=== PATIENT | female | born 1945 | race Caucasian/White ===

== ENCOUNTER 2017-08-13 05:38 | Observation (INO) | payer BC, OTHER ==
[2017-08-08 10:03] VITALS: BMI 29.0
--- NOTE | 2017-08-08 10:37 | PAT Medication Instructions ---
Service Date Aug 08, 2017. Current Home Medication List Aspirin (Aspirin Ec), 81 MG PO QAM Atenolol (Tenormin), 12.5 MG PO QAM Beclomethasone Dip (Qvar), 2 SPRAYS INH QAM Cholecalciferol (Vitamin D3), 1 CAP PO QPM Citalopram Hydrobromide (Citalopram Hydrobromide), 1 TAB PO QAM Ezetimibe (Zetia), 10 MG PO QPM Ibuprofen (Advil), 400 MG PO Q8H PRN for RN Levothyroxine Sodium (Levothyroxine Sodium), 1 TAB PO QAM Mometasone Furoate-Formoterol (Dulera 200/5 Mcg), 2 PUFFS INH QAM Montelukast Sodium (Montelukast Sodium), 1 TAB PO QAM Omeprazole (Prilosec), 40 MG PO QAM Rosuvastatin Calcium (Crestor), 40 MG PO QPM [Tramadol], 1 TAB PO 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 Instructions For Your Scheduled Surgery - Check with surgeon and inspector set up and lay out for instructions: Aspirin (Aspirin Ec), 81 MG PO QAM - Check with surgeon for instructions: Ibuprofen (Advil), 400 MG PO Q8H PRN for RN - Hold the following medications the morning of surgery: Montelukast Sodium (Montelukast Sodium), 1 TAB PO QAM - Take the following medications the morning of surgery with a sip of water: [Tramadol], 1 TAB PO Q8H PRN for RN (okay to take up to 4 hours prior to surgery if needed) Omeprazole (Prilosec), 40 MG PO QAM Mometasone Furoate-Formoterol (Dulera 200/5 Mcg), 2 PUFFS INH QAM Levothyroxine Sodium (Levothyroxine Sodium), 1 TAB PO QAM Citalopram Hydrobromide (Citalopram Hydrobromide), 1 TAB PO QAM Atenolol (Tenormin), 12.5 MG PO QAM Beclomethasone Dip (Qvar), 2 SPRAYS INH QAM - Take the following medications as scheduled the night before surgery: [Tramadol], 1 TAB PO Q8H PRN for RN (if needed) Rosuvastatin Calcium (Crestor), 40 MG PO QPM Ezetimibe (Zetia), 10 MG PO QPM Cholecalciferol (Vitamin D3), 1 CAP PO QPM If you have any questions please call us at [phone] or [phone] or [phone]
[2017-08-08 11:12] LABS: BASO % 0.3 %; BASO ABS # 0.02 K/uL (0-0.2); COMPLETE YES; EOS % 2.2 %; HEMATOCRIT 40.2 % (37-47); IG% 0.3 %; LYMPH % 26.6 %; MEAN CORPUSCULAR HEMOGLOBIN 32.6 pg (25-34); MEAN CORPUSCULAR HGB CONC 34.3 g/dl (32-36); MEAN PLATELET VOLUME 10.8 fL (7.4-10.4); NEUT % 63.6 %; PLATELET COUNT 251 K/uL (130-400); RED BLOOD COUNT 4.23 M/uL (4.2-5.4); WHITE BLOOD COUNT 7.15 K/uL (4.8-10.8)
[2017-08-08 11:13] LABS: URINE APPEARANCE CLEAR (CLEAR); URINE COLOR DK YELLOW; URINE EPITHELIAL CELL AUTO 20-30 /lpf (0-5); URINE NITRITE POS (NEG); URINE PH 5.5 (4.5-7.5); URINE SPECIFIC GRAVITY 1.034 (1.000-1.030); UROBILINOGEN NEG (NEG)
[2017-08-08 11:21] LABS: BUN/CREATININE RATIO 17.1 (10-20); CALCIUM 9.1 mg/dl (8.5-10.1); CREATININE 0.8 mg/dl (0.60-1.20)
--- NOTE | 2017-08-08 11:22 | DIAGNOSTIC IMAGING REPORT ---
CHEST PREADMISSION(PA/LAT) CLINICAL HISTORY: Preoperative chest COMPARISON STUDY: No previous studies for comparison. FINDINGS: The cardiac and mediastinal contours are normal. There is no evidence of focal pulmonary consolidation. There is no evidence of failure. No pleural effusions are visualized.[ IMPRESSION: No active disease in the chest. Electronically signed by: Herman Mckinney M.D. 08/08/2017 11:21 AM Dictated Date/Time: 08/08/2017 11:18 AM
[2017-08-08 11:25] LABS: MANUAL MICROSCOPIC REQUIRED? NO; REVIEW REQ? NO; URINE BILIRUBIN NEG (NEG)
[2017-08-08 11:25] LABS: PARTIAL THROMBOPLASTIN RATIO 0.9; PROTHROMBIN TIME (PATIENT) 10.3 SECONDS (9.0-12.0)
[2017-08-13] VITALS (10 sets, daily range): BP systolic 118–190; BP diastolic 72–99; PULSE 65–85; TEMP 36.4–36.9; O2SAT 90–98
[~2017-08-13] VITALS: Ht 157.5 cm; Wt 72.7 kg
[~2017-08-13 05:38] MED LIST: ASPI81TA28 PO; ATEN-173 PO; CHOL2000 PO; CITA20TA4 PO; EZET10TA63 PO; IBUP-1050 PO; LEVO100T7 PO; MOME200A INH; MONT1TAB5 PO; PRLSR20 PO; QVRINH80 INH; ROSU40TA PO; TRAMADOL PO
[2017-08-13] MEDS ORDERED: CEFAZOLIN 1000MG/55 ML D5W 55 ML IV SCH (06:00)
[2017-08-13] MEDS ORDERED: CEFAZOLIN 2000 MG/60 ML D5W 60 ML IV SCH (06:00)
[2017-08-13] MEDS ORDERED: LACTATED RINGER'S 1000ML 1,000 ML IV SCH (06:00)
[2017-08-13] MEDS ORDERED: SODIUM CHLORIDE 0.9% 1000ML 1,000 ML IV SCH (06:00)
[2017-08-13] MEDS ORDERED: bactrim (06:08)
[2017-08-13] MEDS ORDERED: NEOSTIGMINE METHYLSULFATE 5 MG/5 ML SYR ONE (06:42)
[2017-08-13] MEDS ORDERED: ONDANSETRON INJ 2 MG/ML 2 ML VIAL ONE (06:42)
[2017-08-13] MEDS ORDERED: MIDAZOLAM HCL 1 MG/ML 2ML VIAL ONE (06:42)
[2017-08-13] MEDS ORDERED: LIDOCAINE HCL 2% 2 ML VIAL (20MG/ML) ONE (06:42)
[2017-08-13] MEDS ORDERED: GLYCOPYRROLATE INJ 0.2 MG/ML VIAL ONE (06:42)
[2017-08-13] MEDS ORDERED: DEXAMETHASONE SOD INJ 4 MG/ML VIAL ONE (06:42)
[2017-08-13] MEDS ORDERED: PROPOFOL IV EMULSION 10 MG/ML 20 ML VIAL IV ONE (06:42)
[2017-08-13] MEDS ORDERED: FENTANYL CITRATE INJ 50 MCG/1 ML 2 ML VIAL ONE ×3 (06:42→08:32)
[2017-08-13] MEDS ORDERED: VANCOMYCIN HCL 1000MG/20ML VIAL ONE (07:04)
[2017-08-13] MEDS ORDERED: THROMBIN FOR SOLN 20000 UNIT KIT ONE (07:04)
[2017-08-13] MEDS ORDERED: GELATIN SPONGE SZ 100 ONE (07:04)
[2017-08-13] MEDS ORDERED: BACITRACIN 50000 UNIT VIAL ONE (07:04)
[2017-08-13] MEDS ORDERED: BUPIVACAINE/EPINEPHRINE 0.5% MPF 1:200,000 30 ML VIAL ONE (07:05)
[2017-08-13] MEDS ORDERED: NURSING VERBAL MED ORDER ONE ×2 (07:10→16:45)
[2017-08-13] MEDS ORDERED: CEFAZOLIN SOD 1000MG/55 ML D5W IV ONE (07:11)
--- NOTE | 2017-08-13 07:29 | History and Physical ---
History & Physical Date Aug 13, 2017. Chief Complaint Back and right lower extremity pain ongoing for 9 months in duration with associated weakness History of Present Illness The patient is a 71 year old female with complaints of Romulo lower extremity pain again for 9 months in duration weakness of the course of time inability to ambulate Past Medical/Surgical History Radical problem list Pretension high cholesterol asthma apnea angioplasty diabetes and bruisability acid reflux and history knee surgeries 2 angioplasty and placement Allergies to Ceclor Allergies Coded Allergies: Adhesives (Verified Allergy, Unknown, RASH WITH BANDAIDS, 08/13/17) Cefaclor (Verified Allergy, Unknown, FACIAL SWELLING, 08/13/17) Latex1 -Allergic Contact Dermititis (Verified Allergy, Unknown, REDNESS CONTACT, 08/13/17) Home Medications Scheduled Aspirin (Aspirin Ec), 81 MG PO QAM Atenolol (Tenormin), 12.5 MG PO QAM Beclomethasone Dip (Qvar), 2 SPRAYS INH QAM Cholecalciferol (Vitamin D3), 1 CAP PO QPM Citalopram Hydrobromide (Citalopram Hydrobromide), 1 TAB PO QAM Ezetimibe (Zetia), 10 MG PO QPM Levothyroxine Sodium (Levothyroxine Sodium), 1 TAB PO QAM Mometasone Furoate-Formoterol (Dulera 200/5 Mcg), 2 PUFFS INH QAM Montelukast Sodium (Montelukast Sodium), 1 TAB PO QAM Omeprazole (Prilosec), 40 MG PO QAM Rosuvastatin Calcium (Crestor), 40 MG PO QPM [bactrim], 1 BID Scheduled PRN Ibuprofen (Advil), 400 MG PO Q8H PRN for RN [Tramadol], 1 TAB PO Q8H PRN for RN Physical Examination Skin: warm/dry Eyes: normal inspection, sclerae normal ENT: normal ENT inspection Head: normocephalic Neck: supple Respiratory/Chest: lungs clear Cardiovascular: regular rate, rhythm, no edema, no murmur Abdomen / GI: normal bowel sounds Back: normal inspection Extremities: normal inspection Neurologic/Psych: + pertinent finding (motor and sensory deficit right-hand side L5-S1 nerve root distribution) Diagnosis Spinal stenosis lumbar spine ASA Classification: ASA Class III Plan of Treatment Plan of treatment Laminectomy and foraminotomy L5-S1
[2017-08-13] MEDS ORDERED: FENTANYL CITRATE INJ 50 MCG/1 ML 2 ML VIAL IV PRN (08:00)
[2017-08-13] MEDS ORDERED: ONDANSETRON INJ 2 MG/ML 2 ML VIAL IV PRN ×2 (08:00→09:00)
[2017-08-13] MEDS ORDERED: EpHEDrine SULFATE INJ 50 MG/ML AMP IV PRN (08:00)
[2017-08-13] MEDS ORDERED: ATROPINE SULFATE 0.1 MG/ML 5ML SYR IV PRN (08:00)
[2017-08-13] MEDS ORDERED: EpHEDrine SULFATE 50MG/5ML SYR ONE (08:10)
[2017-08-13] MEDS ORDERED: ROCURONIUM BROMIDE 10 MG/ML 5 ML VIAL IV ONE (08:45)
--- NOTE | 2017-08-13 08:50 | DIAGNOSTIC IMAGING REPORT ---
SPINE ONE VIEW, ANY LEVEL CLINICAL HISTORY: L5-S1 LAMINECTOMY/FORAMINOTOMY COMPARISON STUDY: Lumbar spine MRI July 21, 2017. Fluoroscopy time: 2.1 seconds. FINDINGS: Single lateral fluoroscopic image demonstrates surgical retractors and instruments directed over the posterior elements at the L5-S1 level. IMPRESSION: Surgical instruments projecting over the posterior elements at the L5-S1 level. Electronically signed by: Carlos Tidwell M.D. 08/13/2017 8:49 AM Dictated Date/Time: 08/13/2017 8:47 AM
--- NOTE | 2017-08-13 08:51 | [facility] Post Operative Brief Note ---
Immediate Operative Summary Operative Date Aug 13, 2017. Pre-Operative Diagnosis Spinal Stenosis Post-Operative Diagnosis Spinal Stenosis Procedure(s) Performed L5-S1 Laminectomy/ Foraminotomy Surgeon Dr. Peña Foundry Supervisor Surgeon(s) Yony Pimentel PA-C Estimated Blood Loss 30ml Findings severe stenosis Specimens none per surgeon Complication(s) None Disposition Recovery Room / PACU
[2017-08-13] MEDS ORDERED: LORAZEPAM 1 MG TAB PO PRN (09:00)
[2017-08-13] MEDS ORDERED: HYDROmorphone INJ 2 MG/ML SYR/VIAL IV PRN (09:00)
[2017-08-13] MEDS ORDERED: ACETAMINOPHEN 325 MG TAB PO PRN (09:00)
[2017-08-13] MEDS ORDERED: PROMETHAZINE HCL INJ 12.5 MG in SODIUM CHLORIDE 0.9% 50ML 50 ML IV PRN (09:00)
[2017-08-13] MEDS ORDERED: HYDROmorphone INJ 1 MG/ML SYR IV PRN (09:00)
[2017-08-13] MEDS ORDERED: LORAZEPAM INJ 1 MG in SYRINGE 0.5 ML IV PRN (09:00)
[2017-08-13] MEDS ORDERED: OXYCODONE/ACETAMINOPHEN 5-325 TAB PO PRN (09:00)
[2017-08-13] MEDS ORDERED: METOCLOPRAMIDE HCL INJ 5 MG/ML 2 ML VIAL IV PRN (09:00)
[2017-08-13] MEDS ORDERED: MAGNESIUM HYDROXIDE SUSP 30 ML UDC PO PRN (09:00)
[2017-08-13] MEDS ORDERED: LABETALOL HCL IV 5 MG/ML 20ML IV ONE (09:13)
--- NOTE | 2017-08-13 09:16 | OPERATIVE REPORT ---
DATE OF OPERATION: 08/13/2017 PREOPERATIVE DIAGNOSIS: Spinal stenosis L5-S1. POSTOPERATIVE DIAGNOSIS: Same. PROCEDURE: Include a laminectomy, S1, and foraminotomy L5-S1. SURGEON: FIXED ASSETS ACCOUNTANT: Yony Pimentel PA-C. COMPLICATIONS: Zero. BLOOD LOSS: Less than 50. ANESTHETIC: General. DESCRIPTION OF PROCEDURE: The patient was taken to the operating room, a general intubated anesthetic provided to the patient, placed prone. I scrubbed, prepped and draped sterile. We made a skin incision from L4 to the sacrum dissecting the soft tissue. We dissected down off the lamina out to the facet joints, putting in a deep self-retaining retractor. We careful did a laminectomy favoring the right hand side which is her symptomatic side. We decompressed the nerve root which had been L5 and S1 on the right hand side. There was a large synovial cyst which I believe was the culprit and the major generator of pain. She also had a disc protrusion as well which was a contributor in addition to general spinal stenosis. The nerves were free at the close of our dissection. We irrigated, closed in layers. Sterile dressing applied. The patient returned to PACU stable in improved stable condition and vancomycin powder was used in the wound. Sponge and needle count correct. No complications. I attest to the content of the Intraoperative Record and any orders documented therein. Any exception s are noted below.
--- NOTE | 2017-08-13 10:04 | Anesthesiology Progress Note ---
Anesthesia Post Op Note Date & Time Aug 13, 2017 at 10:04 Vital Signs Pain Intensity: 2 Vital Signs Past 12 Hours Date Time Temp Pulse Resp B/P (MAP) Pulse Ox O2 Delivery O2 Flow Rate FiO2 08/13/17 09:45 36.6 77 16 128/72 94 Nasal Cannula 4 08/13/17 09:35 76 16 134/82 97 Nasal Cannula 4 08/13/17 09:25 79 16 135/110 98 Oxymask 15 08/13/17 09:15 83 16 135/98 92 Oxymask 15 08/13/17 09:05 36.7 82 16 162/104 94 Oxymask 15 08/13/17 06:15 36.7 65 18 190/88 (122) 95 Room Air Notes Mental Status: alert / awake / arousable, participated in evaluation Pt Amnestic to Procedure: Yes Nausea / Vomiting: adequately controlled Pain: adequately controlled Airway Patency, RR, SpO2: stable & adequate BP & HR: stable & adequate Hydration State: stable & adequate Anesthetic Complications: no major complications apparent
[2017-08-13] MEDS ORDERED: IV FLUIDS COMPLETED PRN (10:30)
[2017-08-13] MEDS: SODIUM CHLORIDE 0.9% 1000ML 1,000 ML IV SCH ×2 (11:37→20:55)
[2017-08-13] MEDS ORDERED: CEFAZOLIN IV 2,000 MG/60 ML D5W IV SCH (14:00)
[2017-08-13] MEDS: ASPIRIN 81 MG ECTAB PO SCH (14:12)
[2017-08-13] MEDS: MONTELUKAST SOD 10 MG TAB PO SCH (14:13)
[2017-08-13] MEDS: DEXAMETHASONE INJ 10 MG in SYRINGE 0 ML IV SCH ×2 (16:09→23:47)
[2017-08-13] MEDS: CEFAZOLIN SOD 2000 MG in DEXTROSE 5% 50ML IV SCH ×2 (16:16→23:47)
[2017-08-13] MEDS: OXYCODONE/ACETAMINOPHEN 5-325 TAB PO PRN (16:27)
[2017-08-13] MEDS: MACROBID 100 MG PO SCH (20:54)
[2017-08-13] MEDS ORDERED: EZETIMIBE 10MG TAB PO SCH (21:00)
[2017-08-13] MEDS ORDERED: CHOLECALCIFEROL 1000 INTER.UNIT TAB PO SCH (21:00)
[2017-08-14] MEDS: OXYCODONE/ACETAMINOPHEN 5-325 TAB PO PRN (03:08)
[2017-08-14 03:33] VITALS: BP 135/75; PULSE 91; TEMP 37; O2SAT 92
[2017-08-14] MEDS ORDERED: NURSING VERBAL MED ORDER ONE (05:00)
[2017-08-14] MEDS ORDERED: BISACODYL 10 MG SUPP PR PRN (06:00)
[2017-08-14] MEDS ORDERED: LEVOTHYROXINE 100 MCG TAB PO SCH (06:00)
[2017-08-14] MEDS ORDERED: BISACODYL 5 MG TABEC PO PRN (06:00)
[2017-08-14 07:06] VITALS: BP 121/69; PULSE 90; TEMP 36.6; O2SAT 92
--- NOTE | 2017-08-14 07:51 | Discharge Instructions ---
Discharge Instructions Date of Service Aug 14, 2017. Admission Reason for Admission: Spinal Stenosis Discharge Discharge Diagnosis / Problem: same Discharge Goals Goal(s): Improve function Activity Recommendations Activity Limitations: as noted below Lifting Limitations: until after follow-up appointment Exercise/Sports Limitations: until after follow-up appointment May Resume Sexual Activity: after follow-up appointment Shower/Bathe: keep incision dry home ,rest, recover . Instructions / Follow-Up Instructions / Follow-Up MEDICATIONS: Please take your prescriptions as instructed at your pre-op appointment. SPECIAL CARE: The following information is intended to answer some of the common questions and concerns regarding your surgery. Each patient is an individual and receives individual counselling throughout the course of treatment, from diagnosis to surgery all the way through recovery. What follows is not an exhaustive list, but should be a useful guide to some of the common questions and concerns patients have regarding their surgeries. These are not provided to keep you from calling us; rather, they give you something accurate and concrete to reference as you recover from your procedure. If you need us, we are available to you. As always, if you are not sure about something, call us at [phone]. MEDICAL EMERGENCIES: For these conditions, call 911 or go to your local hospital-based Emergency Department - not [facility] or equivalent. * Paralysis * Severe chest pain or difficulty breathing * Swelling or redness of either leg Spine procedures can be rather complex and though complications are rare, they do occur. In such cases, effective advice regarding emergency situations cannot always be addressed over the telephone. You may be referred to the emergency department for more effective management of your problem. Activity Limitations: It is important to give your body time to heal, so please limit your activities : * In general, don't do anything that moves your spine too much. You should avoid contact sports, twisting or heavy lifting while you recover. * 5-10 pounds is all you should attempt to lift. * You should not plan on driving for approximately 3 weeks and you should avoid traveling more than 30-45 minutes at a time. Longer trips should be broken down with walking breaks spaced appropriately. * Physical therapy is not usually required. * Walking and good posture practices will help you recover and regain your function. * Avoid straining or sudden changes in position. * In general, the goal is to take it easy and recover. Don't cause any new problems. Just relax. Showers: * Do not take a bath, use a Jacuzzi or hot tub or otherwise submerge your incision. * It is usually safe to take a shower 4-5 days after your surgery. * Your incision does not require any special creams or ointments. * Simply clean it with soap and water, dry and re-dress with a clean bandage afterwards. Incision: * Keep incision clean, dry and protected until your first follow-up appointment. * Some amount of drainage and redness is normal. Any drainage should be fairly clear and not have a foul odor. * If you feel anything is wrong or you have excessive drainage, please call us. * Your stitches and julio will be removed 10-14 days after your surgery. At the time of your first post-op visit. * Neck surgeries are typically closed with a suture underneath the skin. The steri-strips over the incision should be maintained until we see you in the office. Bracing: * You may be provided with a back or neck brace to encourage good posture and prevent injury. It will remind you not to do too much as you heal and will alert others to the fact that you have had a surgery. * Back braces may be removed for showers and when you are resting at home. They must be worn when you are walking around for any period of time or for travel. * For neck surgery, you will likely be provided with two cervical collars. The soft collar ([place]ham or foam rubber) is worn most commonly throughout the day and while sleeping. The plastic collar (provided at the hospital) is for showering/bathing. * Except while eating, collars should remain in place. More specifically, bracing is provided for a purpose and should be worn. * Please obtain your brace or collars prior to your operation and bring them to the hospital with you on the day of surgery. * You should also bring your collars to your post-op appointment with Dr. Peña. You should always take good care of your body and practice healthy habits, especially following surgery. You should: * Follow your doctor's treatment plan * Sit and stand properly with good posture (ears over shoulders, shoulders over hips) Don't slouch * Learn to lift correctly * Exercise regularly (low-impact aerobic exercise is especially good, but check with your doctor first) * Generally, be up and walking for 5-10 minutes at a time at least 3-4 times per day from the day you get home * Increasing walking to tolerance until you can walk for 20-30 minutes at a time * Attain and maintain a healthy body weight * Eat healthy foods ( a well-balanced, low-fat diet rich in fruits and vegetables) and get enough calcium * Avoid excessive use of alcohol When to call our office - If you notice any of the following: * Increased pain not relieve by pain medicine * Fevers greater then 100 degrees F, chills or flu symptoms * Increased redness around incision * Drainage from the incision that is not clear * Any foul smelling drainage * Swelling or fluid collection beneath the skin Miscellaneous: * In the hospital, you may be given a walker or cane for support while walking. These are temporary needs and are intended to prevent injuries due to falls. You may discontinue them when you feel strong and steady enough on your feet. * Sleep in a comfortable position. We find that many patients find a lounge chair or recliner with several pillows to be beneficial in the early post-operative period. * The support stockings should be used for 7-10 days and may be discontinued when you are back to walking more and conducting usual household activities. No problem is insignificant. We are here to help you and get you well. Contact us at [phone]. Definitions: Foraminotomy: If part of the disc or a bone spur (osteophyte) is pressing on a nerve as it leaves the vertebra (through an exit called the foramen), a foraminotomy may be done. Otomy means "to make an opening." A foraminotomy is making the opening of the foramen larger, so the nerve can exit without being compressed. Laminotomy: Similar to the foraminotomy, a laminotomy makes a larger opening, this time in your bony plate protecting your spinal canal and spinal cord (the lamina). The lamina may be pressing on your nerve, so the surgeon may make more room for the nerves using a laminotomy. Laminectomy: Sometimes, a laminotomy is not sufficient. The surgeon may need to remove all or part of the lamina. This procedure is called a laminectomy. This can often be done at many levels without any harmful effects. Current Hospital Diet Patient's current hospital diet: Diabetes Type 2 Diet Discharge Diet Recommended Diet: Regular Diet, Diabetes Type 2 Diet Procedures Procedures Performed: L5-S1 Laminectomy/ Foraminotomy Pending Studies Studies pending at discharge: no Medical Emergencies . Who to Call and When: Medical Emergencies: If at any time you feel your situation is an emergency, please call 911 immediately. . Non-Emergent Contact Non-Emergency issues call your: Surgeon . "Provider Documentation" section prepared by Haroldo Peña. . VTE Core Measure Inpt VTE Proph given/why not?: Treatment not indicated
[2017-08-14] MEDS: DEXAMETHASONE INJ 10 MG in SYRINGE 0 ML IV SCH (08:33)
[2017-08-14] MEDS: CEFAZOLIN SOD 2000 MG in DEXTROSE 5% 50ML IV SCH (08:33)
[2017-08-14] MEDS: ASPIRIN 81 MG ECTAB PO SCH (08:34)
[2017-08-14] MEDS: MONTELUKAST SOD 10 MG TAB PO SCH (08:35)
[2017-08-14] MEDS: MACROBID 100 MG PO SCH (08:35)
[2017-08-14] MEDS ORDERED: PANTOprazole SOD 40 MG TAB PO SCH (09:00)
[2017-08-14] MEDS ORDERED: POLYETHYLENE (MIRALAX) 17 GM PACK PO SCH (09:00)
[2017-08-14] MEDS ORDERED: MOMETASONE/FORMOTEROL (DULERA) INH INH SCH (09:00)
[2017-08-14] MEDS ORDERED: CITALOPRAM 20 MG TAB PO SCH (09:00)
--- NOTE | 2017-08-14 09:00 | Anesthesiology Progress Note ---
Anesthesia Post Op Note Date & Time Aug 14, 2017 at 09:00 Vital Signs Pain Intensity: 0.0 Vital Signs Past 12 Hours Date Time Temp Pulse Resp B/P (MAP) Pulse Ox O2 Delivery O2 Flow Rate FiO2 08/14/17 08:06 Room Air 08/14/17 07:06 36.6 90 16 121/69 (86) 92 Room Air 08/14/17 03:33 37.0 91 15 135/75 (95) 92 Room Air 08/13/17 23:50 Room Air 08/13/17 22:54 36.9 85 16 118/72 (87) 92 Room Air Notes Mental Status: alert / awake / arousable, participated in evaluation Pt Amnestic to Procedure: Yes Nausea / Vomiting: adequately controlled Pain: adequately controlled Airway Patency, RR, SpO2: stable & adequate BP & HR: stable & adequate Hydration State: stable & adequate Anesthetic Complications: no major complications apparent
[2017-08-14 10:00] VITALS: Ht 157.5 cm; Wt 72.7 kg
[2017-08-14 10:37] VITALS: BP 121/69; PULSE 90; TEMP 36.6; O2SAT 92
--- NOTE | 2017-08-15 01:04 | DISCHARGE SUMMARY ---
She is improved, stable after surgery yesterday. No chest pain, shortness of breath or confusion. No neurological deficit. Vital signs stable, afebrile. Lab work not indicated. ASSESSMENT: Status post laminectomy of lumbar spine. She will be discharged home this morning. Dressing change, her drain will be pulled. She has instructions and precautions from the office and given here in the hospital. She is to call if any problems arise.
== END 2017-08-14 11:34 | disposition home or self-care (01) ==
LOC: C.ACU 05:38 → C.3E 08:59 → ENRESERV 09:26
PROVIDERS: ADMIT Orthopaedic Surgery Orthopaedic Surgery of the Spine; ATTEND Orthopaedic Surgery Orthopaedic Surgery of the Spine
DX: M48.06 Spinal stenosis, lumbar region (principal); I10 Essential (primary) hypertension; E78.00 Pure hypercholesterolemia, unspecified; J45.909 Unspecified asthma, uncomplicated; E11.9 Type 2 diabetes mellitus without complications; K21.9 Gastro-esophageal reflux disease without esophagitis; Z79.82 Long term (current) use of aspirin

== ENCOUNTER 2017-08-17 07:59 | Emergency (ER) | payer OTHER ==
[~2017-08-17] VITALS: Ht 157.5 cm; Wt 70.9 kg
[~2017-08-17 07:59] MED LIST changes: +bactrim
[2017-08-17 08:02] VITALS: TEMP 36.6; Ht 157.5 cm; Wt 70.9 kg
[2017-08-17] MEDS ORDERED: SODIUM CHLORIDE 0.9% 1000ML 1,000 ML IV STA (08:22)
--- NOTE | 2017-08-17 08:32 | EMERGENCY ROOM VISIT NOTE ---
History First contact with patient: 08:07 Chief Complaint: DIARRHEA Stated Complaint: DEHYDRATION-RECENT BACK SURGERY Nursing Triage Summary: Pt states last night she started sweating and had diarrhea yesterday. Chills. Back surgery on Sunday. tylenol at midnight. Rash on back from tape Tramadol taken this am. History of Present Illness The patient is a 71 year old female who presents to the Emergency Room with complaints of chills, myalgia, sweating. The patient had laminectomy performed by Dr. Peña 2 days ago. She has been doing well in regard to her back. Prior to the surgery, she was being treated for urinary tract infection with Macrobid. The patient states that she had been constipated and took a laxative which seemed to work quite well to the point that she had several episodes of diarrhea. The patient states last night that she felt generalized myalgia. She states she had chills and was sweating last night. She reports suprapubic tenderness. She denies fevers. She denies any headache. She denies any chest pain or trouble breathing. She denies any nausea or vomiting. She denies any numbness, tingling, weakness in the extremities. She denies any drainage from the surgical site. She rates her discomfort a 2/10. Review of Systems A 10 system review of systems was completed with positives and pertinent negatives listed in the HPI. Past Medical/Surgical History Medical Problems: (1) Lumbar stenosis Social History Smoking Status: Former Smoker Housing Status: lives with family Current/Historical Medications Scheduled Aspirin (Aspirin Ec), 81 MG PO QAM Atenolol (Tenormin), 12.5 MG PO QAM Beclomethasone Dip (Qvar), 2 SPRAYS INH QAM Cholecalciferol (Vitamin D3), 2,000 UNITS PO QPM Citalopram Hydrobromide (Citalopram Hydrobromide), 20 MG PO QAM Ezetimibe (Zetia), 10 MG PO QPM Levothyroxine Sodium (Levothyroxine Sodium), 100 MCG PO QAM Mometasone Furoate-Formoterol (Dulera 200/5 Mcg), 2 PUFFS INH QAM Montelukast Sodium (Montelukast Sodium), 10 MG PO QAM Nitrofurantoin Monohyd Macro (Macrobid), 1 CAP PO BID Omeprazole (Prilosec), 40 MG PO QAM Rosuvastatin Calcium (Crestor), 40 MG PO QPM Scheduled PRN Ibuprofen (Advil), 400 MG PO Q8H PRN for RN Tramadol (Ultram), 50 MG PO Q8H PRN for Pain Physical Exam Vital Signs Date Time Temp Pulse Resp B/P (MAP) Pulse Ox O2 Delivery O2 Flow Rate FiO2 08/17/17 10:26 76 18 156/90 96 Room Air 08/17/17 09:21 76 18 152/85 95 Room Air 08/17/17 08:02 36.6 82 17 158/113 95 Room Air Physical Exam VITALS: Vitals are noted on the nurse's note and reviewed by myself. Vital signs stable. The patient is afebrile. GENERAL: This is a 71 year old female, in no acute distress, nondiaphoretic, well-developed well-nourished. SKIN: The skin was without erythema, edema, or bruising. There is erythema in the area of the tape. There is no significant erythema, edema, tenderness or drainage at the surgical site. There is no tenting of the skin. Capillary reflex less than 2 seconds. HEAD: Normocephalic atraumatic. EARS: EYES: Pupils equal round and reactive to light and accommodation. Conjunctivae without injection, sclerae without icterus. Extraocular movements intact. NOSE: Patent, turbinates without inflammation or discharge. MOUTH: Mucous membranes moist. Tonsils are not enlarged. Pharynx without erythema or exudate. Uvula midline. Airway patent. Tongue does not deviate. NECK: Supple without nuchal rigidity. No JVD. HEART: Regular rate and rhythm without murmurs gallops or rubs. LUNGS: Clear to auscultation bilaterally without wheezes, rales or rhonchi. No retractions or accessory muscle use. ABDOMEN: Positive bowel sounds x 4. Soft, mild suprapubic tenderness, without masses or organomegaly. Anderson sign negative. MUSCULOSKELETAL: No muscle atrophy, erythema, or edema noted. Full range of motion without joint tenderness in all extremities. No tenderness to palpation. Normal gait. Strength 5/5 throughout. NEURO: Patient was alert and oriented to person place and time. Normal sensation to light and sharp touch. Deep tendon reflexes 2+ throughout. No focal neurological deficits. Medical Decision & Procedures ER Provider Diagnostic Interpretation: CHEST 2 VIEWS ROUTINE CLINICAL HISTORY: Chills. COMPARISON STUDY: Chest radiograph August 08, 2017. FINDINGS: Lung volumes are normal. No pneumothorax or pleural effusion is present. No consolidation is identified to suggest pneumonia. There is no evidence of pulmonary edema. Minimal lower lung opacities favor atelectasis. Cardiomediastinal silhouette is stable. IMPRESSION: 1. No acute cardiopulmonary findings. 2. Mild bibasilar opacities suggestive of atelectasis. Laboratory Results 08/17/17 08:40 Red Blood Count 3.99, Mean Corpuscular Volume 94.0, Mean Corpuscular Hemoglobin 33.1, Mean Corpuscular Hemoglobin Concent 35.2, Mean Platelet Volume 10.8, Neutrophils (%) (Auto) 76.7, Lymphocytes (%) (Auto) 13.2, Monocytes (%) (Auto) 8.7, Eosinophils (%) (Auto) 0.9, Basophils (%) (Auto) 0.2, Neutrophils # (Auto) 8.60, Lymphocytes # (Auto) 1.48, Monocytes # (Auto) 0.98, Eosinophils # (Auto) 0.10, Basophils # (Auto) 0.02 08/17/17 08:40 Test 08/17/17 08:40 08/17/17 08:45 White Blood Count 11.21 K/uL (4.8-10.8) Red Blood Count 3.99 M/uL (4.2-5.4) Hemoglobin 13.2 g/dL (12.0-16.0) Hematocrit 37.5 % (37-47) Mean Corpuscular Volume 94.0 fL (80-100) Mean Corpuscular Hemoglobin 33.1 pg (25-34) Mean Corpuscular Hemoglobin Concent 35.2 g/dl (32-36) Platelet Count 271 K/uL (130-400) Mean Platelet Volume 10.8 fL (7.4-10.4) Neutrophils (%) (Auto) 76.7 % Lymphocytes (%) (Auto) 13.2 % Monocytes (%) (Auto) 8.7 % Eosinophils (%) (Auto) 0.9 % Basophils (%) (Auto) 0.2 % Neutrophils # (Auto) 8.60 K/uL (1.4-6.5) Lymphocytes # (Auto) 1.48 K/uL (1.2-3.4) Monocytes # (Auto) 0.98 K/uL (0.11-0.59) Eosinophils # (Auto) 0.10 K/uL (0-0.5) Basophils # (Auto) 0.02 K/uL (0-0.2) RDW Standard Deviation 45.0 fL (36.4-46.3) RDW Coefficient of Variation 13.0 % (11.5-14.5) Immature Granulocyte % (Auto) 0.3 % Immature Granulocyte # (Auto) 0.03 K/uL (0.00-0.02) Prothrombin Time 10.3 SECONDS (9.0-12.0) Prothromb Time International Ratio 1.0 (0.9-1.1) Activated Partial Thromboplast Time 22.7 SECONDS (21.0-31.0) Partial Thromboplastin Ratio 0.9 Anion Gap 7.0 mmol/L (3-11) Est Creatinine Clear Calc Drug Dose 71.0 ml/min Estimated GFR () 102.9 Estimated GFR (Non- 88.8 BUN/Creatinine Ratio 19.4 (10-20) Calcium Level 9.3 mg/dl (8.5-10.1) Magnesium Level 2.3 mg/dl (1.8-2.4) Total Bilirubin 0.9 mg/dl (0.2-1) Aspartate Amino Transf (AST/SGOT) 22 U/L (15-37) Alanine Aminotransferase (ALT/SGPT) 30 U/L (12-78) Alkaline Phosphatase 75 U/L (45-117) Total Protein 6.9 gm/dl (6.4-8.2) Albumin 3.5 gm/dl (3.4-5.0) Globulin 3.4 gm/dl (2.5-4.0) Albumin/Globulin Ratio 1.0 (0.9-2) Urine Color YELLOW Urine Appearance CLEAR (CLEAR) Urine pH 7.0 (4.5-7.5) Urine Specific [place] 1.009 (1.000-1.030) Urine Protein NEG (NEG) Urine Glucose (UA) NEG (NEG) Urine Ketones NEG (NEG) Urine Occult Blood NEG (NEG) Urine Nitrite NEG (NEG) Urine Bilirubin NEG (NEG) Urine Urobilinogen NEG (NEG) Urine Leukocyte Esterase TRACE (NEG) Urine WBC (Auto) 1-5 /hpf (0-5) Urine RBC (Auto) 0-4 /hpf (0-4) Urine Hyaline Casts (Auto) 1-5 /lpf (0-5) Urine Epithelial Cells (Auto) >30 /lpf (0-5) Urine Bacteria (Auto) NEG (NEG) Medications Administered Medications (Trade) Dose Ordered Sig/Neftali Route Start Time Stop Time Status Last Admin Dose Admin Sodium Chloride 1,000 ml @ 999 mls/hr Q1H1M STAT IV 08/17/17 08:22 08/17/17 09:22 DC 08/17/17 08:44 999 MLS/HR ED Course The patient was seen and examined. Previous visits were reviewed. The patient does not have a fever. She does have a minimal leukocytosis of 11.21. She does not have any significant electrolyte abnormality. INR was 1.0. Urinalysis is negative for urinary tract infection. Chest x-ray was negative for obvious infiltrate. The patient presents to the emergency department with myalgias feelings of chills and sweats. She has been afebrile. She had not taken Tylenol since midnight. The patient had taken a laxative as she was constipated a few days ago. She had several episodes of diarrhea but that resolved yesterday. She was not able to provide a stool sample today. The patient's surgical incision is well approximated. There is no significant surrounding cellulitis. There is no purulent drainage. There is no significant tenderness. The patient has been taking tramadol for her pain. She did not wish to try any different medication in the event that her symptoms were related to the tramadol. The patient's symptoms may be related to mild dehydration secondary to the diarrhea a few days ago. She was hydrated with 1 L of normal saline solution and stated she felt markedly better. She remained afebrile throughout her stay. She does not have any significant or worsening low back pain or pain into her legs. She does not have any neurologic deficit. I discussed the case with Dr. Peña. He agreed that we do not need to pursue advanced imaging of the spine at this time given the above presentation. The patient should follow up with him for further evaluation and management. She should return to the ER with any worsening symptoms or fevers. The case was discussed with Dr. Dobbins who agrees with the assessment and treatment plan. Medical Decision DIFFERENTIAL DIAGNOSIS: Lumbar strain, degenerative disc disease, spondylolisthesis, herniated disc, spinal stenosis, osteoporosis, fracture, cauda equina syndrome, neoplasm, infection, inflammatory arthritis, viral illness, urinary tract infection, pyelonephritis, cellulitis, dehydration, among others Medication Reconcilliation Current Medication List: was personally reviewed by me Blood Pressure Screening Patient's blood pressure: Elevated blood pressure Blood pressure disposition: Referred to PCP Impression Primary Impression: Dehydration Additional Impression: Diarrhea Departure Information Dispostion Home / Self-Care Condition GOOD Referrals Violet Guerrero PA-C (PCP) Patient Instructions Dehydration, My [facility] Additional Instructions Continue your medications as prescribed Return with fevers, worsening redness around the surgical site, drainage of pus , numbness, tingling, weakness in the extremities or generalized worsening symptoms Otherwise, follow up with Dr. Peña Problem Qualifiers
[2017-08-17] MEDS ORDERED: TRAM-10 PO (08:40)
[2017-08-17] MEDS ORDERED: NITR1CAP16 PO (08:41)
[2017-08-17] MEDS ORDERED: OMEP40CA41 PO (08:44)
[2017-08-17 08:54] LABS: BASO % 0.2 %; BASO ABS # 0.02 K/uL (0-0.2); COMPLETE YES; EOS % 0.9 %; HEMATOCRIT 37.5 % (37-47); IG% 0.3 %; LYMPH % 13.2 %; LYMPH ABS # 1.48 K/uL (1.2-3.4); MEAN CORPUSCULAR HEMOGLOBIN 33.1 pg (25-34); MEAN CORPUSCULAR HGB CONC 35.2 g/dl (32-36); MEAN PLATELET VOLUME 10.8 fL (7.4-10.4); MONO % 8.7 %; NEUT % 76.7 %; PLATELET COUNT 271 K/uL (130-400); RED BLOOD COUNT 3.99 M/uL (4.2-5.4); WHITE BLOOD COUNT 11.21 K/uL (4.8-10.8)
[2017-08-17 09:00] LABS: MANUAL MICROSCOPIC REQUIRED? NO; REVIEW REQ? NO; URINE APPEARANCE CLEAR (CLEAR); URINE BILIRUBIN NEG (NEG); URINE COLOR YELLOW; URINE EPITHELIAL CELL AUTO >30 /lpf (0-5); URINE NITRITE NEG (NEG); URINE SPECIFIC GRAVITY 1.009 (1.000-1.030); UROBILINOGEN NEG (NEG); ZZUR CULT IF INDIC CLEAN CATCH NO
[2017-08-17 09:02] LABS: PARTIAL THROMBOPLASTIN RATIO 0.9; PROTHROMBIN TIME (PATIENT) 10.3 SECONDS (9.0-12.0)
[2017-08-17 09:12] LABS: BUN/CREATININE RATIO 19.4 (10-20); CALCIUM 9.3 mg/dl (8.5-10.1); CREATININE 0.69 mg/dl (0.60-1.20); MAGNESIUM 2.3 mg/dl (1.8-2.4); POTASSIUM 3.7 mmol/L (3.5-5.1)
--- NOTE | 2017-08-17 09:47 | DIAGNOSTIC IMAGING REPORT ---
CHEST 2 VIEWS ROUTINE CLINICAL HISTORY: Chills. COMPARISON STUDY: Chest radiograph August 08, 2017. FINDINGS: Lung volumes are normal. No pneumothorax or pleural effusion is present. No consolidation is identified to suggest pneumonia. There is no evidence of pulmonary edema. Minimal lower lung opacities favor atelectasis. Cardiomediastinal silhouette is stable. IMPRESSION: 1. No acute cardiopulmonary findings. 2. Mild bibasilar opacities suggestive of atelectasis. Electronically signed by: Carlos Tidwell M.D. 08/17/2017 9:45 AM Dictated Date/Time: 08/17/2017 9:38 AM
[2017-08-17 10:26] VITALS: BP 156/90; PULSE 76; O2SAT 96
--- NOTE | 2017-08-17 10:39 | EMERGENCY ROOM VISIT NOTE ---
ED Visit Note First contact with patient: 08:07 Staff note: I have reviewed the Patients chart and have discussed this case with my PA. I generally agree with the ED note and findings.
== END 2017-08-17 10:49 | disposition home or self-care (01) ==
LOC: C.EDB 08:01
DX: E86.0 Dehydration (principal); R19.7 Diarrhea, unspecified; Z87.440 Personal history of urinary (tract) infections; Z87.891 Personal history of nicotine dependence; Z98.890 Other specified postprocedural states; Z79.82 Long term (current) use of aspirin